=== PATIENT | female | born 2005 | race Asian ===

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

== ENCOUNTER → 2024-02-09 13:53 | Outpatient (CLI) | payer OTHER, SELFPAY ==
[2024-02-09 15:41] LABS: Urine N gonorrhoeae NOT DETECTED
[2024-02-09 15:45] LABS: Urine Chlamydia DETECTED
== END ==
PROVIDERS: Visit Provider Physician Assistant Medical
DX: J02.9 Acute pharyngitis, unspecified (principal); N89.8 Other specified noninflammatory disorders of vagina
CPT/HCPCS: 87070; 87491; 87591

== ENCOUNTER → 2024-02-09 15:07 | Outpatient (CLI) | payer OTHER, SELFPAY ==
--- NOTE | 2024-02-09 15:10 | DI.RAD.S_ITS ---
PROCEDURE: XR CHEST 2V INDICATIONS: Cough and SOB TECHNIQUE: 2 views of the chest were acquired. COMPARISON: [facility], , XR CHEST 2V, 04/13/2021, 12:32. FINDINGS: Surgical changes and devices: None. Lungs and pleura: Lungs are clear. No pleural effusions or pneumothorax. Mediastinum: Mediastinal contours are normal. Heart size is normal. Bones and chest wall: No suspicious bony abnormalities. Soft tissues appear unremarkable. IMPRESSION: Normal two view chest x-ray Approved by: Mark Peterson M.D. on 02/09/2024 at 15:09
== END ==
LOC: RAD 15:08
PROVIDERS: Referring Provider Physician Assistant Medical; Visit Provider Physician Assistant Medical
DX: J02.9 Acute pharyngitis, unspecified (principal); R06.02 Shortness of breath; N89.8 Other specified noninflammatory disorders of vagina
CPT/HCPCS: 71046; 87070; 87491; 87591